=== PATIENT | male | born 1975 | race Caucasian/White ===

== ENCOUNTER 2016-10-28 20:47 | Observation (INO) | payer BC ==
[2016-10-28] MEDS ORDERED: Ondansetron INJ* 2 MG/ML VIAL IV ONE (21:02)
[2016-10-28 21:12] LABS: Hematocrit 42 % (42-52); Hemoglobin 14.2 g/dl (14.0-18.0); Mean Corpuscular HGB Conc 34 g/dl (31-36); Mean Corpuscular Hemoglobin 30 pg (27-31); Mean Corpuscular Volume 87 fL (80-94); Mean Platelet Volume 7 um3 (7.4-10.4); Red Blood Count 4.78 10^6/ul (4.0-5.4); Red Cell Distribution Width 14 % (10.5-15); White Blood Count 10.4 10^3/ul (3.5-10.8)
[2016-10-28 21:27] LABS: Albumin 4.4 g/dL (3.2-5.2); BUN/Creatinine Ratio 10.6 (8-20); Calcium 9.1 mg/dL (8.6-10.3); EGFR African American 129.7 (>60); EGFR Non-African American 100.9 (>60); Globulin 3.2 g/dL (2-4); Magnesium 1.7 mg/dL (1.9-2.7); Potassium 3.4 mmol/L (3.5-5.0); Total Bilirubin 0.6 mg/dL (0.2-1.0); Total Protein 7.6 g/dL (6.4-8.9)
[2016-10-28 21:28] LABS: Troponin I 0.01 ng/mL (<0.04)
[2016-10-28] MEDS ORDERED: NS 0.9% 1000 ML* 1,000 ML IV ONE ×2 (21:53→21:59)
[2016-10-28 22:00] LABS: TSH (Thyroid Stimulating Horm) 0.26 mcIU/mL (0.34-5.60)
[2016-10-28 22:37] LABS: T4 7.71 g/dL (6.09-12.23)
[2016-10-28] MEDS ORDERED: Metoclopramide IV* 5 MG/ML 2 ML VIAL IV ONE (22:39)
[2016-10-28] MEDS ORDERED: Magnesium Sulfate 2 GM IV* 2 GM/50 ML BAG IVPB ONE (22:39)
[2016-10-28 22:47] LABS: Total T3 1.21 ng/mL (0.87-1.78)
[2016-10-29] MEDS ORDERED: NS 0.9% 1000 ML* 1,000 ML IV ONE (00:03)
[2016-10-29] MEDS ORDERED: Acetaminophen TAB* 325 MG PO ONE (00:12)
[2016-10-29] MEDS ORDERED: Senna TAB PO PRN (02:42)
[2016-10-29] MEDS ORDERED: Docusate CAP* 100 MG PO PRN (02:42)
[2016-10-29] MEDS ORDERED: Morphine INJ* 2 MG/ML 1 ML CARPUJECT IV PRN (02:42)
[2016-10-29] MEDS ORDERED: Acetaminophen TAB* 325 MG PO PRN (02:42)
[2016-10-29] MEDS ORDERED: Ketorolac INJ* 15 MG/ML 1 ML VIAL IV PUSH PRN (02:44)
[2016-10-29] MEDS ORDERED: Meclizine TAB* 12.5 MG PO ONE (03:02)
[2016-10-29] MEDS ORDERED: Ondansetron INJ* 2 MG/ML VIAL IV ONE (03:02)
--- NOTE | 2016-10-29 03:09 | ED ---
IEleazar Erika, scribed for Edwar Singh MD on 10/28/16 at 2357 . Progress - Progress Note Progress Note: NOT IMPROVED IN ED. ADMIT HOSPITALIST STABLE. - Results/Orders Results/Orders: Brain CT read by Imaging secured entrance monitor radiologist: Mild left mastoiditis. Questionable left parafalcine meningioma without mass effect Re-Evaluation - Re-Evaluation First Eval Re-Evaluation Time: 23:20 Change: Unchanged Comment: Patient feels as bad as before Second Eval Re-Evaluation Time: 01:48 Change: Unchanged Comment: Discussed Brain CT results. Pt still feels the same Course/Dx - Course Course Of Treatment: NOT IMPROVED IN ED. ADMIT HOSPITALIST STABLE. - Diagnoses Provider Diagnoses: Near syncope - Provider Notifications Discussed Care Of Patient With: Dr. Armijo (hospitalist) at 01:49 - will see patient Discharge - Discharge Plan Condition: Stable Disposition: ADMITTED TO [facility] The documentation as recorded by the scribeEleazar Erika accurately reflects the service I personally performed and the decisions made by me, Edwar Singh MD.
[2016-10-29] MEDS: NS 0.9% 1000 ML* 1,000 ML IV SCH ×2 (04:42→12:16)
[2016-10-29] MEDS: Ketorolac INJ* 30 MG/ML 1 ML VIAL IV PUSH PRN ×2 (05:00→15:29)
[2016-10-29 05:19] LABS: Hematocrit 37 % (42-52); Hemoglobin 12.5 g/dl (14.0-18.0); Mean Corpuscular HGB Conc 34 g/dl (31-36); Mean Corpuscular Hemoglobin 30 pg (27-31); Mean Corpuscular Volume 88 fL (80-94); Mean Platelet Volume 8 um3 (7.4-10.4); Red Cell Distribution Width 13 % (10.5-15); White Blood Count 15.4 10^3/ul (3.5-10.8)
[2016-10-29 05:37] LABS: BUN/Creatinine Ratio 8.5 (8-20); Calcium 8.3 mg/dL (8.6-10.3); EGFR African American 159.7 (>60); EGFR Non-African American 124.2 (>60); Potassium 3.8 mmol/L (3.5-5.0)
[2016-10-29] MEDS: Ondansetron INJ* 2 MG/ML VIAL IV PRN ×3 (09:09→21:50)
--- NOTE | 2016-10-29 11:07 | HP ---
CC: Smith Brown NP HISTORY AND PHYSICAL: DATE OF ADMISSION: 10/29/16 PRIMARY CARE PHYSICIAN: Smith Brown NP TIME OF EVALUATION: 0200. CHIEF COMPLAINT: Presyncopal symptoms. 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 His colleagues were concerned about him appearing unwell and they brought him over to the emergency room for further evaluation. He continued to feel presyncopal, worse with sitting up. After getting some medications and fluids, he developed headache mostly on the right side and down his face. No neck pain. He has had a chronic sore throat being worked up since May. He saw ENT and ID. It was diagnosed as viral after having a fine needle aspiration biopsy of one of his nodes. He had no fevers or chills, but he did seem to be having rigors in the emergency room. He is complaining of photophobia, phonophobia, and extreme nausea, no vomiting. No history of migraines in the past, but his father does have migraines. He has had episodes of presyncope, but nothing this long. He has had some chronic chest pain in this setting with sore throat, no shortness of breath. No rash. No recent travel. No dizziness. No recent antibiotic use. He has been feeling run down recently with the sore throat. Otherwise, remaining review of systems is negative. In the emergency room, the patient had labs, imaging. He was given 3 L of normal saline, 4 mg of Zofran, 10 mg of Reglan, 2 g of magnesium and Tylenol and was referred to the hospitalist service for further evaluation. PAST MEDICAL HISTORY: 1. Vertigo. 2. History of MRSA abscess. 3. History of pulmonary nodules. 4. History of tonsilloliths. 5. The patient feels that he has a history of meningioma. MEDICATIONS: 1. Claritin. 2. Omeprazole as needed. ALLERGIES: No known drug allergies. FAMILY HISTORY: Father has migraines. Mother has vertigo issues. SOCIAL HISTORY: He lives with his , Tod, who is his healthcare proxy. No history of smoking, alcohol, or illicit drug use. 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 CODE STATUS: Full code. REVIEW OF SYSTEMS: As mentioned in the HPI. PHYSICAL EXAMINATION GENERAL: Mildly ill appearing with his at the bedside. VITAL SIGNS: Temp T-max 99, pulse rate 110, respiratory rate is 24, oxygen saturation 100% on room air, blood pressure is 121/73. HEENT: Pupils are equal and reactive and anicteric. Head normocephalic. No nuchal rigidity. Oropharynx: Mucous membranes are moist. No erythema or exudate. NECK: Supple. No lymphadenopathy. RESPIRATORY: Clear to auscultation. No wheezes, rhonchi or rales. CARDIAC: Tachycardia. No murmurs, rubs, or gallops. ABDOMEN: Soft, nontender, nondistended. EXTREMITIES: No clubbing, cyanosis, or edema. +2 DPs. NEUROLOGIC: The patient with photophobia. No neurologic deficits. Alert and oriented x3. LABORATORY DATA: White count 10.4, hemoglobin 14.2, hematocrit 42, platelets 211. Neutrophil percent 90. INR 217. Sodium 137, potassium 3.4, chloride 102, bicarb 29, BUN 9, creatinine 0.85, glucose 94, magnesium 1.7, troponin is 0.1. TSH is 0.26, T4 is 7.71. RADIOGRAPHIC DATA: Head CT shows mild left mastoiditis, questionable left parafalcine meningioma without mass effect. 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 1. Presyncope. Assessment: The patient with constellation of findings including presyncope, headache, photophobia and phonophobia, all consistent with possibly classic migraine. His father does have migraines. He has had no history of migraines in the past. He does have a low-grade temp. This could be the beginning of infectious cause including flu or viral illness. His lab and initial workup are unremarkable at this time. Plan: We will admit him to telemetry, continue him on fluids. We will start him on Toradol. Continue Zofran and pain control and repeat his labs in the morning. If his symptoms do not improve, consider Neurology evaluation. If he does spike a temp, he may need to get another lumbar puncture and possible further infectious disease evaluation. 2. FEN. Place him on a regular diet. 3. DVT prophylaxis. The patient's score is 0. We will encourage ambulation. If he has prolonged hospital stay, recommend chemical anticoagulation. 4. Code status. Full code. TIME SPENT: Greater than 35 minutes was spent doing the history and physical, more than half the time spent in direct patient contact. [id number]/CPS #: [id number] TOD
[2016-10-29] MEDS: Meclizine TAB* 12.5 MG PO PRN ×2 (11:41→20:44)
--- NOTE | 2016-10-29 11:41 | RAD ---
INDICATION: Headache COMPARISON: None. TECHNIQUE: Contiguous axial sections of the brain were obtained from the skull base to the vertex without contrast. FINDINGS: The ventricles, cisterns and sulci are within normal limits. The salas-white matter differentiation is adequately maintained and there is no sulcal effacement. At the left of midline falx cerebra I there is a calcified structure measuring 1 x 2.3 cm in the axial plane. No significant focal abnormality or mass effect is present. There is no evidence for intracranial hemorrhage. No significant focal osseous abnormality is present. The visualized portion of the paranasal sinuses and mastoid air cells appear clear. IMPRESSION: Possible calcified left of midline parafalcine meningioma.
[2016-10-29] MEDS ORDERED: Levofloxacin 750 MG IVPREMIX(* 750 MG/150 ML BAG IVPB SCH (17:00)
--- NOTE | 2016-10-29 17:15 | PN ---
Subjective Date of Service: 10/29/16 Interval History: . Interviewed and examined patient at bedside; Discussed case with Dr. Armijo ; Reviewed previous notes and radiology results; patient still feels poorly - intermittent throat pain. Will get BCX/UCX and start empiric ABX Pt is 5L + and is not dehydrated. nonspecific s/sx trial of meclizine without significant benefit. Upgrade to INPATIENT...patient aware and agrees. . Family History: Unchanged from Admission Social History: Unchanged from Admission Past Medical History: Unchanged from Admission Objective Active Medications: . Acetaminophen (Tylenol Tab*) 650 mg PO Q4H PRN PRN Reason: FEVER/PAIN Last Admin: 10/29/16 09:09 Dose: 650 mg Al Hydrox/Mg Hydrox/Simethicone (Maalox Plus*) 30 ml PO Q6H PRN PRN Reason: INDIGESTION Docusate Sodium (Colace Cap*) 100 mg PO BID PRN PRN Reason: CONSTIPATION Sodium Chloride (Ns 0.9% 1000 Ml*) 1,000 mls @ 150 mls/hr IV PER RATE ANGLE Last Admin: 10/29/16 12:16 Dose: 150 mls/hr Levofloxacin/Dextrose (Levaquin 750 Mg Ivpremix(*)) 750 mg in 150 mls @ 100 mls /hr IVPB Q24H ANGLE Vancomycin HCl 1,000 mg/ (Sodium Chloride) 250 mls @ 166.667 mls/hr IVPB DAILY ANGLE Metronidazole/Sodium Chloride (Flagyl 500 Mg Ivpb*) 500 mg in 100 mls @ 100 mls /hr IVPB Q12H ANGLE Ketorolac Tromethamine (Toradol Inj*) 30 mg IV PUSH Q6H PRN PRN Reason: PAIN Last Admin: 10/29/16 15:29 Dose: 30 mg Meclizine HCl (Antivert Tab*) 25 mg PO Q8HR PRN PRN Reason: dizziness Last Admin: 10/29/16 11:41 Dose: 25 mg Morphine Sulfate (Morphine Inj (Syringe)*) 2 mg IV Q4H PRN PRN Reason: PAIN Ondansetron HCl (Zofran Inj*) 4 mg IV Q4H PRN PRN Reason: NAUSEA/VOMITING Last Admin: 10/29/16 15:29 Dose: 4 mg Senna (Senokot Tab*) 1 tab PO BID PRN PRN Reason: CONSTIPATION . Vital Signs 10/29/16 10/29/16 10/29/16 03:00 03:19 03:34 Temperature 99.2 F Pulse Rate 85 83 82 Respiratory 13 12 18 Rate Blood Pressure 95/59 99/68 (mmHg) O2 Sat by Pulse 96 95 96 Oximetry 10/29/16 10/29/16 10/29/16 03:36 04:04 05:35 Temperature 99.2 F 97.9 F 97.9 F Pulse Rate 82 83 83 Respiratory 18 16 16 Rate Blood Pressure 99/68 102/60 102/60 (mmHg) O2 Sat by Pulse 95 95 Oximetry Oxygen Devices in Use Now: None Appearance: ill appearing mid aged man sitting at side of bed. unsteady gait observed Eyes: No Scleral Icterus Ears/Nose/Mouth/Throat: - - R cervical mass - previously bx LN Neck: Trachea Midline, No Thyroid Enlargement, Masses - other than previously described LN. Respiratory: Symmetrical Chest Expansion and Respiratory Effort Cardiovascular: NL Sounds; No Murmurs; No JVD Abdominal: NL Sounds; No Tenderness; No Distention Lymphatic: No Inguinal Adenopathy, No Auricular Adenopathy Extremities: No Edema Skin: No Rash or Ulcers Neurological: Alert and Oriented x 3 Lines/Tubes/Other Access: Clean, Dry and Intact Peripheral IV Nutrition: Taking PO's Result Diagrams: 10/29/16 04:44 10/29/16 04:44 Microbiology and Other Data: Microbiology 10/29/16 05:05 Nasal Screen MRSA (PCR)(ROBB) - Final Nasal Mrsa Negative 10/29/16 03:32 Influenza Types A,B Antigen (ROBB) - Final Nasal Specimen received for Influenza A/B Molecular testing Assess/Plan/Problems-Billing . Assessment: 40 yo man with ongoing chronic throat pain, now with nonspecific malaise and LH while at work - placed initially on observation with suspicion for BPV/pre- syncope - failure to improve in > 24 hours with WBC increase and noted left shift -- ongoing throat pain. Will admit patient and get BCX/UCX/CXR --> start empiric broad sepctrum antibiotics. + h/o MRSA --> vanco - suspicion for anaerobic deep tissue infection given radiating throat pain --> flagyl - general GP/GN coverage => levofloxacin. ongoing IVF and repeat AM labs, to include inflammatory markers. could consider U/S neck tomorrow if no improvement. follow vitals closely. further clinical decisions will be made based on the results of the testing ordered and his response to therapy. .
[2016-10-29 17:23] LABS: Urine Bilirubin Negative (Negative); Urine Glucose Negative (Negative); Urine Nitrite Negative (Negative)
[2016-10-29] MEDS ORDERED: metroNIDAZOLE IV 500 MG/100ML* 500 MG/100 ML BAG IVPB SCH (18:00)
[2016-10-29] MEDS ORDERED: Vancomycin(*) 1,000 MG in NS 0.9% 250 ML* 250 ML IVPB SCH (18:00)
--- NOTE | 2016-10-29 18:23 | RAD ---
INDICATION: Presyncope COMPARISON: Most recent comparison chest x-rays dated July 20, 2016 TECHNIQUE: Single AP portable view of the chest was obtained. FINDINGS: Image quality is compromised due to the relative inferiority of a portable chest x-ray. The heart and mediastinum exhibit normal size and contour. The lungs are grossly clear. There is no evidence of a large pleural effusion. Visualized bones are normal for the patient's age. IMPRESSION: No radiographic evidence for acute cardiopulmonary abnormality on this portable chest x-ray.
[2016-10-29] MEDS ORDERED: Vancomycin per Pharmacy* NOTE FOLLOW UP PRN (18:57)
[2016-10-29] MEDS ORDERED: Vancomycin 1500 MG IV IVPB ONE ×2 (19:00)
[2016-10-29] MEDS: Al Hydrox/Mg Hydrox/Simet LIQ* 30 ML UDC PO PRN (23:56)
[2016-10-30] MEDS: Ketorolac INJ* 30 MG/ML 1 ML VIAL IV PUSH PRN (00:31)
[2016-10-30] MEDS: Ondansetron INJ* 2 MG/ML VIAL IV PRN ×2 (01:53→07:21)
[2016-10-30] MEDS: NS 0.9% 1000 ML* 1,000 ML IV SCH ×2 (01:56→11:52)
[2016-10-30 05:29] LABS: Hematocrit 36 % (42-52); Hemoglobin 12.4 g/dl (14.0-18.0); Mean Corpuscular HGB Conc 34 g/dl (31-36); Mean Corpuscular Hemoglobin 30 pg (27-31); Mean Corpuscular Volume 88 fL (80-94); Mean Platelet Volume 8 um3 (7.4-10.4); Red Blood Count 4.09 10^6/ul (4.0-5.4); Red Cell Distribution Width 13 % (10.5-15); White Blood Count 5.8 10^3/ul (3.5-10.8)
[2016-10-30 05:43] LABS: BUN/Creatinine Ratio 9.3 (8-20); Calcium 8.2 mg/dL (8.6-10.3); EGFR Non-African American 99.5 (>60); Potassium 3.7 mmol/L (3.5-5.0)
[2016-10-30] MEDS: Vancomycin(*) 1,250 MG in NS 0.9% 250 ML* 250 ML IVPB SCH ×2 (05:48→14:18)
[2016-10-30] MEDS: Meclizine TAB* 12.5 MG PO PRN ×2 (07:21→13:44)
[2016-10-30] MEDS ORDERED: metroNIDAZOLE IV 500 MG/100ML* 500 MG/100 ML BAG IVPB SCH (08:00)
[2016-10-30] MEDS: Al Hydrox/Mg Hydrox/Simet LIQ* 30 ML UDC PO PRN (09:05)
[2016-10-30 11:45] VITALS: BP 109/65
--- NOTE | 2016-10-30 19:11 | PN ---
Hospitalist Progress Note . HOSPITALIST DISCHARGE NOTE: See dc instructions and summary by me. Patient stable for dc dc instructions reviewed with the patient at the bedside. DC patient home today.
[2016-10-30] MEDS ORDERED: Vancomycin Trough Check NOTE FOLLOW UP ONE (22:00)
--- NOTE | 2016-10-31 14:50 | DS ---
CC: Smith Brown NP DISCHARGE SUMMARY: DATE OF ADMISSION: 10/29/16 DATE OF DISCHARGE: 10/30/16 PRIMARY CARE PROVIDER: Smith Brown NP, [facility]. STATUS DURING HOSPITALIZATION: Observation. PRINCIPAL DISCHARGE DIAGNOSES: Unspecified viral infection versus benign positional vertigo. SECONDARY DIAGNOSES: 1. History of vertigo. 2. History of Methicillin-resistant Staphylococcus aureus abscess. 3. History of pulmonary nodules. 4. History of tonsillitis. 5. History of meningioma by patient report, but not substantiated by head CT. DISCHARGE MEDICATION REGIMEN: Continue Claritin and omeprazole as previous. NEW MEDICATIONS: 1. Levofloxacin 500 mg by mouth x 5 days then stop. 2. Meclizine 25 mg by mouth every 6 hours p.r.n. dizziness - 30 tabs prescribed. HISTORY OF PRESENT ILLNESS AND HOSPITAL COURSE: Please see the H and P by Dr. Allison Armijo on October 29, 2016. In brief, Mr. 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 The patient sat down and his symptoms did not improve. His colleagues were concerned about his appearing unwell and he came to the emergency room for evaluation. He continued to report presyncopal feelings and described a headache mostly his right side and down his face. There was no neck pain. He has a chronic sore throat that is being worked up in the outpatient setting. He saw ENT and ID for this. He was diagnosed as having a virus after a fine needle aspiration biopsy of one of those nodes in fall 2015. The patient describes no recent fevers of chills, but had some rigors in the emergency room. There was photophobia and phonophobia and extreme nausea, but no vomiting. There was no history of migraines in the past, but his father has migraines. The patient does have a history of presyncopal episodes, but nothing this long. The patient denied any rash. No travel, no dizziness, no recent antibiotic use and does report feeling rundown with a sore throat. Otherwise, his review of systems was negative. He was treated with aggressive normal saline resuscitation with 3 L and then put on standing fluids and placed on observation status. I saw the patient later that day and the patient did not feel much better and I noticed an elevated white blood cell count and given the patient's feeling very poorly, wanda blood cultures, collected a urine culture, ordered a chest x-ray and placed the patient on the empiric antibiotics. The patient was also treated with meclizine for the possibility of benign positional vertigo (BPV). He felt marginally better with these therapies and slowly got to the point where he could ambulate independently. He was accompanied by his male partner and discharged in stable condition on October 30 2016 around mid-day. I had initially mistakenly thought the patient was placed on observation status on October 28, but I now see that he was actually placed on observation at 2: 00 a.m. on October 29. The patient should be therefore an observation patient and I will make this administrative changes necessary for this; I made the admission order under mistaken premise that the patient was placed on observation status on October 28. In terms of the decision to treat with antibiotics, there was the white blood cell count elevation on the morning of October 29. The patient did have rigors. It is possible that he has got an infection that responded to the antibiotics that were started. I think it would be low risk to continue a 5- day course of Levaquin in the event that he has got an unspecified bacterial infection. Of note, the patient's influenza tests were negative and his other lab work was generally unremarkable. Blood cultures were drawn and were no growth as of the time of discharge and they will be followed to ultimate negativity. Likewise, it is low risk to continue meclizine therapy given the possibility of BPV. TIME SPENT: Total time taken to discharge Mr. Ordaz was 40 minutes, greater than half the time was spent going over the discharge instructions [id number] with the patient. CONDITION AT DISCHARGE: Stable. [id number]/[facility] #: [id number]
--- NOTE | 2016-11-04 14:15 | ED ---
Cr Corocran Anna, scribed for Gus Caballero MD on 10/28/16 at 2143 . Syncope/Near Syncope - HPI Summary HPI Summary: Patient is a 40-year-old male coming to [facility] presenting with sudden onset of lightheadedness that began at 20:25 this evening. The patient is additionally diaphoretic, pale, chilled, and nauseous. The patient denies vomiting, diarrhea , jaw pain, shoulder pain, belly pain, or headache. The patient reports that he has been investigated for a constant sore throat since May, including a visit to the ENT, but nothing has been diagnosed. The patient reports that he didnt drink or eat anything unusual today. He last ate dinner at 17:00. He reports no more trouble swallowing than normal. Has been sleeping normally. Baseline stress levels. - History Of Current Complaint Time Seen by Provider: 10/28/16 20:50 Hx Obtained From: Patient, Family/Vegetable Washer - Accompanied by colleague - Allergies/Home Medications Allergies/Adverse Reactions: Allergies Allergy/AdvReac Type Severity Reaction Status Date / Time No Known Allergies Allergy Verified 09/09/16 13:51 PMH/Surg Hx/FS Hx/Imm Hx Endocrine/Hematology History: Denies: Hx Diabetes Cardiovascular History: Denies: Hx Hypertension, Hx Pacemaker/ICD Respiratory History: Reports: Hx Asthma - A CHILD Denies: Other Respiratory Problems/Disorders History: Denies: Hx Renal Disease Sensory History: Denies: Hx Hearing Aid Psychiatric History: Denies: Hx Panic Disorder - Surgical History Surgery Procedure, Year, and Place: APPENDECTOMY. TONSILECTOMY. CHOLECYSTECTOMY. FACE I&D. LEFT UNDER ARM I&D Infectious Disease History: No Infectious Disease History: Reports: Hx of Known/Suspected MRSA - FACE AND LEFT UNDER ARM Denies: History Other Infectious Disease, Traveled Outside the [place] in Last 30 Days - Family History Known Family History: Positive: Other - Denies family history of fainting or arrhythmias Negative: Cardiac Disease - Social History Occupation: Employed Full-time Lives: With Family Alcohol Use: None Substance Use Type: Reports: None Hx Tobacco Use: No Smoking Status (MU): Never Smoked Tobacco Review of Systems Positive: Chills, Skin Diaphoresis, Other - pale Positive: Sore Throat Positive: Nausea All Other Systems Reviewed And Are Negative: Yes Physical Exam - Summary Physical Exam Summary: General: Comfortable, pleasant, quite alert, cooperative, chilled HEENT: Moist mucosa. PARESH. No pharyngeal erythema or exudates. Neck: Soft, supple, no adenopathy, no edema, no nuchal rigidity. One right submandibular slightly larger than left side. Heart: S1, S2, RRR. Heart sounds distant. Triage HR tachycardic, currently within normal limits. No murmurs, rubs, or gallops. Lungs: Clear to auscultation. Breathing comfortable. No wheezes or rales. Abdominal: Soft, flat, nontender. Extremities: Extremities pale and cool No edema, calves soft and nontender. Neuro: Alert and oriented x 3. CN 3-12 intact. Negative pronator drift. Psych: Logical, coherent. Triage Information Reviewed: Yes Vital Signs On Initial Exam: Initial Vitals Temp Pulse Resp BP Pulse Ox 99.0 F 95 24 122/73 100 10/28/16 21:01 10/28/16 21:01 10/28/16 21:01 10/28/16 21:01 10/28/16 21:01 Vital Signs Reviewed: Yes Diagnostics - Vital Signs Vital Signs Temp Pulse Resp BP Pulse Ox 10/28/16 21:07 110 121/73 100 10/28/16 21:06 96 122/69 10/28/16 21:01 99.0 F 95 24 122/73 100 - Laboratory Lab Results: Lab Results 10/28/16 10/28/16 10/28/16 Range/Units 21:00 21:00 21:00 WBC 10.4 (3.5-10.8) 10^3/ul RBC 4.78 (4.0-5.4) 10^6/ul Hgb 14.2 (14.0-18.0) g/dl Hct 42 (42-52) % MCV 87 (80-94) fL MCH 30 (27-31) pg MCHC 34 (31-36) g/dl RDW 14 (10.5-15) % Plt Count 211 (150-450) 10^3/ul MPV 7 L (7.4-10.4) um3 Neut % (Auto) 90.2 H (38-83) % Lymph % (Auto) 7.9 L (25-47) % Harding % (Auto) 1.1 (1-9) % Eos % (Auto) 0.6 (0-6) % Baso % (Auto) 0.2 (0-2) % Absolute Neuts (auto) 9.4 H (1.5-7.7) 10^3/ul Absolute Lymphs (auto) 0.8 L (1.0-4.8) 10^3/ul Absolute Monos (auto) 0.1 (0-0.8) 10^3/ul Absolute Eos (auto) 0.1 (0-0.6) 10^3/ul Absolute Basos (auto) 0 (0-0.2) 10^3/ul Absolute Nucleated RBC 0.01 10^3/ul Nucleated RBC % 0.1 Sodium 137 (133-145) mmol/L Potassium 3.4 L (3.5-5.0) mmol/L Chloride 102 (101-111) mmol/L Carbon Dioxide 29 (22-32) mmol/L Anion Gap 6 (2-11) mmol/L BUN 9 (6-24) mg/dL Creatinine 0.85 (0.67-1.17) mg/dL Est GFR ( Amer) 129.7 (>60) Est GFR (Non-Af Amer) 100.9 (>60) BUN/Creatinine Ratio 10.6 (8-20) Glucose 94 (70-100) mg/dL Lactic Acid 1.2 (0.5-2.0) mmol/L Calcium 9.1 (8.6-10.3) mg/dL Magnesium 1.7 L (1.9-2.7) mg/dL Total Bilirubin 0.60 (0.2-1.0) mg/dL AST 17 (13-39) U/L ALT 16 (7-52) U/L Alkaline Phosphatase 77 (34-104) U/L Troponin I 0.01 (<0.04) ng/mL Total Protein 7.6 (6.4-8.9) g/dL Albumin 4.4 (3.2-5.2) g/dL Globulin 3.2 (2-4) g/dL Albumin/Globulin Ratio 1.4 (1-3) TSH Pending Result Diagrams: 10/30/16 05:09 10/30/16 05:09 Lab Statement: Any lab studies that have been ordered have been reviewed, and results considered in the medical decision making process. - EKG 20:48 Cardiac Rate: NL - 97 bpm EKG Rhythm: Sinus Rhythm EKG Interpretation: No S/T changes. No arrhythmias. Re-Evaluation - Re-Evaluation First Eval Re-Evaluation Time: 21:51 Change: Unchanged Comment: Patient is still trembling, feels throat is full. Still a bit nauseous. He is going to try eating and drinking. Course/Dx Assessment/Plan: Young healthy gentleman comes in with fairly significant sudden onset of lightheadedness. Considered anaphylaxis, sepsis, anxiety, dehydration, and clinically none seem to be the case. Now, he is maybe slightly less symptomatic but still feeling pretty lousy. When he sits up in bed, his HR goes from normal to 134. Workup thus far is totally normal. Added on D-dImer as well as T3 and T4 for minimally depressed TSH. Dr. Singh is aware of patient and kindly agrees to re-evaluate after IV fluids and elie kyle. - Diagnoses Differential Diagnosis/HQI/PQRI: Positive: Cerebral Vascular Accident, Coronary Artery Disease, Dysrhythmia, Hyperventilation, Hypoglycemia, Hypovolemia, Metabolic Reaction, Myocardial Infarction, Medication Reaction, Pulmonary Embolism, Transient Ischemic Attack, Vasovagal Episode Provider Diagnoses: Near syncope Discharge - Discharge Plan Condition: Stable Disposition: ADMITTED TO [facility] documentation as recorded by the Cr herrera Anna accurately reflects the service I personally performed and the decisions made by me, Gus Caballero MD.
== END 2016-10-30 15:00 | disposition home or self-care (01) ==
LOC: ED 20:47 → MEDTELE 10-29 02:42 → INTOOBSV 10-29 17:18 → OBSVTOIN 10-29 17:18
PROVIDERS: ADMIT Pediatrics; ATTEND Internal Medicine
DX: R55 Syncope and collapse (principal); R11.0 Nausea; R50.9 Fever, unspecified; H70.92 Unspecified mastoiditis, left ear; J02.9 Acute pharyngitis, unspecified; R53.81 Other malaise; Z86.14 Personal history of Methicillin resistant Staphylococcus aureus infection; D72.829 Elevated white blood cell count, unspecified
CPT/HCPCS: 36415; 70450; 71010; 80048; 80053; 81003; 83605; 83735; 84436; 84443; 84479; 84484; 85025; 85379; 86141; 87040; 87502; 87641; 93005; 96365; 96366; 96367; 96375; 96376; 99285; A9270-GY; G0378; J1885; J2405; J2765; J3370; J3475; J3490